=== PATIENT | male | born 1945 | race Caucasian/White ===

== ENCOUNTER → 2017-04-06 | Outpatient (CLI) | payer MEDICARE | END | disposition home or self-care (01) | LOC: PCVCCLINIC 10:19 | PROVIDERS: ATTEND Internal Medicine Cardiovascular Disease | DX: I25.10 Atherosclerotic heart disease of native coronary artery without angina pectoris (principal); E78.00 Pure hypercholesterolemia, unspecified; I77.9 Disorder of arteries and arterioles, unspecified; R07.89 Other chest pain; M17.0 Bilateral primary osteoarthritis of knee; E03.9 Hypothyroidism, unspecified; J45.909 Unspecified asthma, uncomplicated; Z82.49 Family history of ischemic heart disease and other diseases of the circulatory system; Z79.82 Long term (current) use of aspirin | CPT/HCPCS: 80061; 93005; G0463 ==

== ENCOUNTER → 2017-07-07 | Outpatient (CLI) | payer MEDICARE ==
--- NOTE | 2017-07-07 12:39 | PCVCIMAG ---
APPROVED REPORT Exam: Stress Echocardiogram Indication: CAD , Hyperlipidemia Patient Location: Echo lab Stress Nurse: Gretchen Valverde RN Status: routine Ht: 5 ft 6 in HR: 76 bpm BP: 156/94 mmHg Rhythm: NSR Medical History Medical History: CAD non obstructive, Hyperlipidemia Cardiac Risk Factors: Hyperlipidemia, FHX of CAD Pretest Chest Pain Characteristics: No chest pain Exercise History: Indeterminate Procedure The patient underwent Stress Test using the Jason Protocol. Blood pressure, heart rate, and EKG were monitored. An Echocardiogram was performed by wet process technician in four stages in quad fashion. At peak stress, four selected images were obtained and placed side by side with resting images for comparison. Stress Test Details Stress Test: Exercise stress testing was performed using a Jason protocol. HR Resting HR: 76 bpmMax Heart Rate (APMHR): 149 bpm Max HR Achieved: 144 bpmTarget HR (85% APMHR): 126 bpm % of APMHR: 96 Recovery HR: 86 bpm HR response to stress: Normal HR response to stress BP Resting BP: 156/94 mmHg Max BP: 178/80 mmHg Recovery BP: 136/90 mmHg ECG Resting ECG: Sinus Rhythm Stress ECG: Sinus Rhythm ST Change: Non-ischemic Maximum ST Deviation: 1.25 mm Arrhythmia: None Recovery ECG: Sinus Rhythm Recovery ST Change: Non-ischemic Recovery ST Deviation: 1.05 mm Recovery Arrhythmia: None Clinical Reason for Termination: Maximal effort Stress Symptoms: NONE Exercise duration: 10 min sec Highest Stage Achieved: Stage 4: 4.2 mph at 16% grade. Exercise capacity: 13.4 METs Overall Exercise Capacity for Age: Average Angina Score: None Stress ECG Conclusion ECG: Non-ischemic Salvador Treadmill Score is 3.8 which is Moderate risk. Pre-Stress Echo The resting Echocardiogram showed normal left ventricular contractility with an estimated Ejection Fraction of about 55-60%. Normal wall motion in all segments on baseline images. Post-Stress Echo The stress Echocardiogram showed normal left ventricular contractility with an estimated Ejection Fraction of about 65-70%. Normal augmentation of wall motion in all segments on post stress images. Clinical No clinical or ECG evidence for ischemia. Conclusion Clinical Response: Non-ischemic Exercise Capacity: Average Stress ECG Response: Non-ischemic Stress Echo Images: Non-ischemic No clinical, EKG or echocardiographic evidence for ischemia. No echocardiographic evidence for exercise induced ischemia. Normal stress echocardiogram with maximal exercise stress. <Conclusion> No clinical, EKG or echocardiographic evidence for ischemia. No echocardiographic evidence for exercise induced ischemia. Normal stress echocardiogram with maximal exercise stress.
== END | disposition home or self-care (01) ==
LOC: PCVCIMAG 09:31
PROVIDERS: ATTEND Internal Medicine Cardiovascular Disease
DX: I25.10 Atherosclerotic heart disease of native coronary artery without angina pectoris (principal); E78.00 Pure hypercholesterolemia, unspecified; I77.89 Other specified disorders of arteries and arterioles; Z82.49 Family history of ischemic heart disease and other diseases of the circulatory system
CPT/HCPCS: 93325; 93351

== ENCOUNTER → 2019-06-20 | Outpatient (CLI) | payer MEDICARE ==
--- NOTE | 2019-06-21 13:43 | PCVCIMAG ---
APPROVED REPORT Study performed: 06/20/2019 15:48:45 Exam: Stress Echocardiogram Indication: Hypertension,elevated cor ca score Patient Location: Echo lab Stress Nurse: Rona Doyle RN Room #: 2 Status: routine Ht: 5 ft 6 in HR: 78 bpm BP: 172/102 mmHg Rhythm: NSR Medical History Medical History: HTN Cardiac Risk Factors: HTN, Hyperlipidemia, FHX of CAD Pretest Chest Pain Characteristics: No chest pain Exercise History: Physically active Procedure The patient underwent an Exercise Stress Test using the Santos Protocol. Blood pressure, heart rate, and EKG were monitored. An Echocardiogram was performed by printer repair technician in four stages in quad fashion. At peak stress, four selected images were obtained and placed side by side with resting images for comparison. Stress Test Details Stress Test: Exercise stress testing was performed using a Santos protocol. HR Resting HR: 78 bpmMax Heart Rate (APMHR): 147 bpm Max HR Achieved: 157 bpmTarget HR (85% APMHR): 124 bpm % of APMHR: 106 Recovery HR: 86 bpm HR response to stress: Normal HR response to stress BP Resting BP: 172/102 mmHg Max BP: 180/78 mmHg Recovery BP: 144/90 mmHg BP response to stress: Normal blood pressure response to stress.Hypertensive at rest. ECG Resting ECG: Sinus Rhythm with frequent PACs Stress ECG: Sinus Rhythm, NSSTT changes ST Change: Non-ischemic Arrhythmia: Occasional PVCs,PACs,one 3 beat run Recovery ECG: Sinus Rhythm Recovery ST Change: Non-ischemic Recovery Arrhythmia: PACs, occ PVCs, one short 5 beat run PVCs Clinical Reason for Termination: Maximal effort Stress Symptoms: fatigue Exercise duration: 9 min 31 sec Highest Stage Achieved: Stage 4: 4.2 mph at 16% grade. Exercise capacity: 11.8 METs Overall Exercise Capacity for Age: Good Scale: Active Angina Score: None No complications. Stress ECG Conclusion The patient exercised according to the SANTOS protocol for 9:31 mins; achieving a work level of 11.8 METS. The resting heart rate of 78 bpm nahun to a maximum heart rate of 157 bpm. This value represents 106% of the maximal, age-predicted heart rate. The resting blood pressure of 172/102 mmHg, nahun to a maximum blood pressure of 180/78 mmHg. The exercise test was stopped due to fatigue . Pre-Stress Echo The resting Echocardiogram showed normal left ventricular contractility with an estimated Ejection Fraction of about 55-60%. Normal wall motion in all segments on baseline images. Post-Stress Echo The stress Echocardiogram showed normal left ventricular contractility with an estimated Ejection Fraction of about 65-70%. Normal augmentation of wall motion in all segments on post stress images. Clinical No clinical or ECG evidence for ischemia. Conclusion Clinical Response: Non-ischemic Exercise Capacity: Average Stress ECG Response: Non-ischemic Stress Echo Images: Non-ischemic No clinical, EKG or echocardiographic evidence for ischemia. No echocardiographic evidence for exercise induced ischemia. Normal stress echocardiogram with maximal exercise stress. <Conclusion> No clinical, EKG or echocardiographic evidence for ischemia. No echocardiographic evidence for exercise induced ischemia. Normal stress echocardiogram with maximal exercise stress.
== END | disposition home or self-care (01) ==
LOC: PCVCIMAG 15:16
PROVIDERS: ATTEND Internal Medicine Cardiovascular Disease
DX: I10 Essential (primary) hypertension (principal); R93.1 Abnormal findings on diagnostic imaging of heart and coronary circulation; E78.5 Hyperlipidemia, unspecified
CPT/HCPCS: 93325; 93351